=== PATIENT | male | born 1955 | race Caucasian/White ===

== ENCOUNTER 2016-06-15 05:57 | Inpatient (IN) | payer BC ==
[2016-05-21 11:07] VITALS: BMI 27.0
--- NOTE | 2016-05-21 11:41 | PAT Medication Instructions ---
Service Date May 21, 2016. Current Home Medication List Lisinopril (Prinivil), Unknown Dose PO QAM Medication Instructions For Your Scheduled Surgery - Hold the following medications the morning of surgery: Lisinopril (Prinivil), Unknown Dose PO QAM If you have any questions please call us at [phone] or [phone] ( Billie) or [phone]
--- NOTE | 2016-05-21 11:48 | HISTORY & PHYSICAL EXAMINATION ---
DATE OF ADMISSION: 06/15/2016 ATTENDING PHYSICIAN: Dr. Yamil Hernández. CHIEF COMPLAINT: Left knee pain x6 months. HISTORY OF PRESENT ILLNESS: The patient is a pleasant 61-year-old retired male who has been treated for left knee pain with Dr. Hernández. He denies any significant injury or swelling to his left knee. He states that he has pain on a daily basis is aggravated with walking. His pain is located on the anterior aspect and medial aspect of his left knee. His pain is increased with activity and weightbearing. He has decreased activities of daily living due to pain in his left knee. He has pain with range of motion and some limited range of motion or stiffness due to the pain. Aggravating activities include walking, going up and down steps. He occasionally has some pain at rest. Prior treatments include nonsteroidal anti-inflammatories and over the counter knee brace. He has had corticosteroid injections with no significant relief. He has also had previous viscosupplementation with no long lasting relief and this was done in February of 2016. He then again saw Dr. Hernández in March. He developed some locking of his knee especially after getting up from a seated position. Due to his knee pain causing trouble on a daily basis, he has elected to proceed with a left total knee replacement. PAST MEDICAL HISTORY: High blood pressure CURRENT MEDICATIONS: He takes lisinopril once per day, he is unclear of the dose. ALLERGIES: He has no known drug allergies. PAST SURGICAL HISTORY: He has had no previous past surgeries or hospitalizations in his life. SOCIAL HISTORY: Denies any tobacco, alcohol or drug use. He is retired and lives with his . Does not use any assistive device to assist with ambulation on a normal basis. FAMILY HISTORY: Noncontributory. REVIEW OF SYSTEMS: He denies any headaches, migraines, seizures or syncopal episodes. Denies any hearing loss or blurry vision. Denies any blood clots, phlebitis, embolisms or history of blood transfusions in the past. He is anxious about the surgery as he has had no previous surgeries or hospitalizations in his life. He denies any chest pain, shortness of breath, or difficulty breathing. Denies any palpitations. He occasionally gets some reflux or heartburn with certain things that he eats, he takes Tums to relieve this, nothing on a routine or a daily basis. He denies any recent fevers, chills, nausea or vomiting. He has had a recent cough, although it seems improved today. He denies any abdominal pain, diarrhea or constipation. Denies any urinary symptoms. Denies any significant changes with weight loss or weight gain. Denies any issues with anesthesia that he knows of. He has not had previous surgeries in the past. PHYSICAL EXAMINATION: GENERAL: He is alert and oriented x3. He is in no acute distress. He is a well-dressed, well-nourished male, normal mood and affect. Height is 5 feet 9 inches. Weight is 185 pounds. HEENT: Head is atraumatic, normocephalic. Eyes: Extraocular movements intact. Sclerae are normal. Pupils are equal, round and reactive to light. Ears: TMs are clear. Hearing is grossly, normal light reflex. Nose: Nares are patent. Throat: Oropharynx is clear. Mucous membranes are moist. Good dentition. Uvula midline. NECK: Supple, no lymphadenopathy. Normal range of motion without discomfort. Trachea midline. LUNGS: Clear to auscultation bilaterally. No adventitious sounds. No accessory muscle use. HEART: Regular rate and rhythm, normal S1, S2. No murmurs appreciated. ABDOMEN: Soft, nontender, nondistended. Bowel sounds heard in all 4 quadrants. EXTREMITIES: Examination of his bilateral lower extremities shows full painless [id number] of both of his hips with normal distal neurovascular function. Motion of his right and left knee is a 0/10/120. He has 1+ dorsalis pedis and posterior tibial pulses bilaterally. Varus alignment of both knees. Strength is 5/5. He ambulates with a slight antalgic gait with no assistive device. He is able to independently straight leg raise. There is no effusion bilaterally. Some mild crepitation with range of motion. RADIOLOGY IMAGES: Radiographs show of bilateral knees AP and lateral merchant views show significant end-stage degenerative joint changes of both of his knees with medial compartment arthritis as well as some patellofemoral arthritis. There is osteophyte formation, subchondral sclerosis, and possible fabella versus loose body in both knees. ASSESSMENT: End-stage left knee degenerative joint disease. PLAN: The patient is scheduled for left total knee arthroplasty with Dr. Hernández on 06/15/2016 at the [facility]. Risks and complications of surgery were explained to the patient and include but are not limited to infection, pain, bleeding, scarring, nerve and blood vessel damage, wound problems, weakness, stiffness, incomplete relief of symptoms, hardware failure, fracture, loosening, wear or blood clots, embolisms, heart attack, stroke and . All questions were answered, informed consent was obtained. He will have preadmission testing later today in which will obtain a preoperative EKG, chest x-ray, CBC, BMP, PT, PTT and type and screen. He will also have preoperative medical clearance by his family physician, Dr. Tyrone Kaplan. He has a followup appointment scheduled on 06/08/2016 with him for that clearance. He would like to go home postoperatively with most likely outpatient physical therapy he is willing to consider going home with in home health, but has not decided upon at this time. We will schedule outpatient physical therapy for the time being until this decision is made. He will follow up with Dr. Hernández in 10-15 days postoperatively for suture removal. He knows to call with any worsening problems or questions or any concerns, prior to surgery. We will use Coumadin for DVT prophylaxis with an INR goal of 2.0-3.0. We may potentially will use Lovenox as a bridging agent if necessary. He will have postoperative medical management as necessary by the hospitalist service. He was instructed to take his lisinopril the morning of surgery with a sip of water. [place]
--- NOTE | 2016-05-21 12:27 | DIAGNOSTIC IMAGING REPORT ---
CHEST PREADMISSION(PA/LAT) CLINICAL HISTORY: PAT preoperative evaluation COMPARISON STUDY: No previous studies for comparison. FINDINGS: The bones soft tissues and hemidiaphragms are normal. The cardiomediastinal silhouette is normal. The lungs are clear. The pulmonary vasculature is normal. IMPRESSION: Negative chest. Electronically signed by: Mike Carpenter M.D. 05/21/2016 12:26 PM
[2016-05-21 12:40] LABS: BASO % 0.2 %; BASO ABS # 0.02 K/uL (0-0.2); COMPLETE YES; EOS % 1.5 %; HEMATOCRIT 44.6 % (42-52); IG% 0.8 %; LYMPH % 15.1 %; LYMPH ABS # 1.51 K/uL (1.2-3.4); MEAN CORPUSCULAR HEMOGLOBIN 32.3 pg (25-34); MEAN CORPUSCULAR HGB CONC 36.3 g/dl (32-36); MEAN PLATELET VOLUME 9.5 fL (7.4-10.4); MONO % 7.5 %; NEUT % 74.9 %; PLATELET COUNT 254 K/uL (130-400); RED BLOOD COUNT 5.01 M/uL (4.7-6.1); WHITE BLOOD COUNT 10.03 K/uL (4.8-10.8)
[2016-05-21 12:57] LABS: INR 0.9 (0.9-1.1); PARTIAL THROMBOPLASTIN RATIO 1.2
[2016-05-21 13:19] LABS: BUN/CREATININE RATIO 26.4 (10-20); CREATININE 0.87 mg/dl (0.60-1.40); POTASSIUM 4.4 mmol/L (3.5-5.1)
[2016-05-21 13:32] LABS: CALCIUM 9.6 mg/dl (8.5-10.1)
[2016-06-15] VITALS (8 sets, daily range): BP systolic 117–158; BP diastolic 72–87; PULSE 76–98; TEMP 36.5–36.9; O2SAT 92–96; Ht 175.3 cm; Wt 84.4 kg
[~2016-06-15] VITALS: Ht 175.3 cm; Wt 84.4 kg
[~2016-06-15 05:57] MED LIST: LISI-729 PO
[2016-06-15] MEDS ORDERED: LACTATED RINGER'S 1000ML IV SCH (06:00)
[2016-06-15] MEDS ORDERED: TRAMADOL HCL 50 MG TAB PO SCH (06:00)
[2016-06-15] MEDS ORDERED: METOCLOPRAMIDE HCL 10 MG TAB PO SCH (06:00)
[2016-06-15] MEDS ORDERED: CLONIDINE HCL 0.1 MG/24 HR TRANSDERM SYS TD SCH (06:00)
[2016-06-15] MEDS ORDERED: GABAPENTIN 300 MG CAP PO SCH (06:00)
[2016-06-15] MEDS ORDERED: CeleBREX 200 MG CAP PO SCH (06:00)
[2016-06-15] MEDS ORDERED: LACTATED RINGER'S 500 ML IV SCH (06:00)
[2016-06-15] MEDS ORDERED: DEXAMETHASONE 4 MG TAB PO SCH (06:00)
[2016-06-15] MEDS ORDERED: ACETAMINOPHEN 500 MG TAB PO SCH (06:00)
[2016-06-15] MEDS ORDERED: BUPIVACAINE LIPOSOME 266 MG, BUPIVACAINE/EPINEPHRINE INJ 50 ML, SODIUM CHLORIDE 0.9% PF... INFIL SCH ×3 (06:00)
[2016-06-15] MEDS ORDERED: OXYCODONE HCL 10 MG TABCR (OXYCONTIN) PO SCH (06:00)
[2016-06-15] MEDS ORDERED: BUPIVACAINE 0.25% 30 ML VIAL ONE (06:39)
[2016-06-15] MEDS ORDERED: BUPIVACAINE 0.5 % 5 MG/1 ML PF 10ML VIAL ONE (06:39)
--- NOTE | 2016-06-15 06:48 | History & Physical Bridge Note ---
H&P Re-Evaluation Bridge Note: I have examined the patient, reviewed the History & Physical and in the interval since the performance of the History & Physical I have noted the following changes of clinical significance: No changes noted
[2016-06-15] MEDS ORDERED: MIDAZOLAM HCL 1 MG/ML 2ML VIAL ONE ×2 (07:32→09:10)
[2016-06-15] MEDS ORDERED: PROPOFOL IV EMULSION 10 MG/ML 20 ML VIAL IV ONE ×2 (07:32→10:30)
[2016-06-15] MEDS ORDERED: LIDOCAINE HCL 2% 2 ML VIAL (20MG/ML) ONE (07:32)
[2016-06-15] MEDS ORDERED: FENTANYL CITRATE INJ 50 MCG/1 ML 2 ML VIAL ONE (07:33)
[2016-06-15] MEDS ORDERED: LISI-461 PO (07:52)
[2016-06-15] MEDS: TRANEXAMIC ACID INJ 1,000 MG in SODIUM CHLORIDE 0.9% 100ML 100 ML IV SCH ×2 (08:40→09:12)
[2016-06-15] MEDS ORDERED: BUPIVACAINE LIPOSOME 1/3% 266 MG/20 ML VIAL INFIL ONE (08:41)
[2016-06-15] MEDS: CEFAZOLIN 2000 MG/60 ML D5W 60 ML IV SCH ×3 (09:12→14:15)
[2016-06-15] MEDS ORDERED: BACITRACIN 50000 UNIT VIAL IR ONE (11:30)
[2016-06-15] MEDS ORDERED: MAGNESIUM HYDROXIDE SUSP 30 ML UDC PO PRN (12:30)
[2016-06-15] MEDS ORDERED: KETOROLAC TROMETHAMINE 30 MG/ML VIAL IV. PRN (12:30)
[2016-06-15] MEDS ORDERED: ONDANSETRON INJ 2 MG/ML 2 ML VIAL IV PRN (12:30)
[2016-06-15] MEDS ORDERED: MoRPHine SULFATE 2 MG/ML CARP IV PRN (12:30)
[2016-06-15] MEDS ORDERED: ALUMINUM/MAGNESIUM/SIMETH (MAALOX MAX) 30 ML UDC PO PRN (12:30)
--- NOTE | 2016-06-15 12:45 | DIAGNOSTIC IMAGING REPORT ---
LEFT KNEE 2 VIEWS History: Left total knee arthroplasty. Degenerative arthritis. Postop. FINDINGS: The patient is status post a left total knee arthroplasty. The hardware is intact. No fracture or dislocation. Skin elli are in place. IMPRESSION: Left total knee arthroplasty. No evidence for hardware complication. Electronically signed by: Omar Olivarez M.D. 06/15/2016 12:43 PM Dictated Date/Time: 06/15/2016 12:41 PM
--- NOTE | 2016-06-15 13:27 | OPERATIVE REPORT ---
DATE OF OPERATION: 06/15/2016 PREOPERATIVE DIAGNOSIS: Left knee osteoarthritis. POSTOPERATIVE DIAGNOSIS: Same. PROCEDURE: Left cemented total knee arthroplasty. SURGEON: Dr. Hernández. TELEPHONE ENGINEER: Jack Calvert MD, fellow. No PA available. ANESTHESIA: Spinal with sedation. INDICATIONS FOR PROCEDURE: The patient is a 61-year-old gentleman with longstanding history of severe bilateral knee arthritis which has been refractory to nonsurgical methods of management. He wishes to proceed with operative intervention. He has had other treatments including injections, medications and braces without relief. PROCEDURE IN DETAIL: Informed consent was obtained. The patient identified as Coleman hCristopher. He identified the operative site as the left knee. I marked it with my initials. A preop surgical timeout was performed. A preop dose of IV antibiotics was given. He was taken to the operating room, positioned supine on the operating room table. Spinal anesthetic and sedation were given. A tourniquet was applied to the left thigh. No bump was placed under the left hip, a padded bump was placed under the calf. The left leg was prepped and draped in usual sterile fashion from the tourniquet to the toes. The exam showed varus alignment, tight. Range 0/10/115. 1+ LCL laxity in mid position, otherwise stable. The deformity was not correctable. There was no significant effusion. The patient received a preop dose of tranexamic acid and will get another dose in recovery. DVT prophylaxis intraoperatively with foot pumps, postoperatively with early mobility, mechanical devices and Coumadin bridging with Lovenox if necessary. The limb was exsanguinated with the Esmarch, tourniquet inflated to 225 mmHg. A midline incision was made approximately 20 cm in length. A medial parapatellar arthrotomy was performed. Soft tissue in the retropatellar fat pad was released. Soft tissue on the anterior aspect of the distal femur was released. The synovial reflection in the lateral gutter was released. An extensile medial release was performed. There was a fragmented medial meniscus tear which was excised. There were grade 3 changes of the patella. The lateral compartment was normal. The medial side showed grade 4 changes diffusely with wear of the bone into the tibia. The cruciate ligaments were excised. The lateral side of the knee was tight and difficult to expose. He had a fairly proximal attachment of the patellar tendon which made accessing the lateral side of the tibia more difficult. The tibia was subluxated. A pilot plant supervisor hole was drilled just anterior to the lateral tibial spine and an intramedullary jean claude was inserted. The jean claude was a little bit difficult to get distally but I think that this was due to a narrow canal. The tibial cutting block 0 degree slope was aligned to the tibial tubercle and pinned into place to resect 10 off the high side, corresponding to a skim cut medially. The knee was placed into full extension and the alignment jean claude was utilized, showed that there was good slope and the jean claude bisected the ankle joint and was just a trace bit to the lateral side of the second metatarsal, which I could correct by tilting the block. This was very minimal. The block was pinned into place and the cut was made. I took some extra effort to remove the posterolateral and lateral cortical bone and to ensure that this area was smoothed using a combination of saw, rongeur and rasp and measuring this with a flat surface to ensure that there was a flat cut made. Medial osteophytes were removed on the tibia and circumferentially around the remainder of the knee. The tibia was sized to a 4 after removal of medial and posteromedial osteophytes. The patellar tendon was protected at all times. Attention was turned to the femur where a pilot plant supervisor hole was drilled into the distal femur, followed by insertion of the distal femoral cutting guide. This was set to resect 12 mm thickness at a 5-degree angle valgus based upon preoperative templating. The block was pinned into place. The cuts were made. The extension gap was slightly tight 10 but symmetric. The Whitesides line was marked, followed by the transepicondylar axis. The cutting guide was affixed to the distal femur and was measured about 3-1/3. The block was pinned here, so that the extra bone will be removed from the posterior condyles. All gauges were set at 3. The external rotation drill holes were made which corresponded to the prior measurement. A size 3 anterior cutting block was applied and cuts were made, protecting the collateral ligaments. The posterior aspect of the knee was examined. There were multiple loose bodies, one in the back of the knee, several in the notch and several in the suprapatellar pouch, all removed. The back of the knee was inspected for osteophytes and posteromedial osteophytes were removed. There was nothing laterally. The box cutting guide was applied and aligned lateral, pinned in place and the cut was made, followed by application of the femoral component. Prior to this, the flexion gap was assessed to be a symmetrical 10 and the extension gap after removal of posterior osteophytes was a symmetric 10 with full extension and neutral alignment. Attention was turned to the tibia where the size 4 baseplate was aligned to the lateral cortex, pinned into place and the keel was drilled and punched. This was followed by insertion of the trial spacer which showed full extension, neutral alignment, flexion to 115-120 degrees, and 1+ laxity in mid position of the LCL, otherwise no laxity. The patella was measured to be 25 mm in thickness and a 38 oval dome patella was selected. The guide was set to preserve 16 mm of bone. The guide was affixed, the cut was made. The patellar paddle was medialized and distalized and the lug holes were drilled. The trial was applied and tracking was excellent. The canals were plugged. The bony surfaces were drilled where there was eburnated bone, medial patella and medial tibia. Copious pulsatile lavage was performed for all bony surfaces to clean them. Exparel was injected into the back of the knee, taking care to avoid the posterior and lateral neurovascular structures. Two bags of Simplex P cement were mixed and the cement was mixed and when in a doughy state, the components were cemented into place. Femur, tibia and patella held in extension until the cement had dried. At this time, the tourniquet was let down after 120 minutes of inflation. Copious pulsatile lavage was performed. During the cement hardening, the remainder of the Exparel was injected around the knee. The trialing showed good stability throughout and the final implant a size 10 was inserted for the spacer. The back of the knee was inspected for cement and the back of the knee was irrigated prior to final wound closure and final polyethylene implantation. The extensor mechanism was closed above the equator with interrupted #2 FiberWire and below the equator with running #1 Vicryl. The skin was closed in layers with 0 and 2-0 Vicryl and elli on the skin. Composite patellar thickness was 26 mm. The patella tracked well with no-hands technique. Langston assisted flexion with the extensor mechanism closed was 115-120 degrees. The knee was fully straight without any springiness and neutrally aligned. 2-0 Vicryl and elli used for the skin, followed by wet and dries and sterile dressing with a full length Elie wrap. The patient was awakened from anesthesia without difficulty, taken to recovery room in stable condition. There were no complications. The resected bone was sent for specimen. Counts were correct at the end of case. Blood loss was 50 mL. At the conclusion of the operation, I spoke to patient's family and informed them of my findings. Postoperative instructions were given. He will be anticoagulated with Coumadin or Lovenox. He will be rehabilitated according to total knee rehab protocol. He can weightbear as tolerated. I attest to the content of the Intraoperative Record and any orders documented therein. Any exceptio ns are noted below.
[2016-06-15] MEDS ORDERED: MoRPHine SULFATE 4 MG/ML 1 ML CARP\\VIAL IV PRN ×2 (14:00)
--- NOTE | 2016-06-15 14:05 | Anesthesiology Progress Note ---
Anesthesia Post Op Note Date & Time Jun 15, 2016 at 14:05 Vital Signs Pain Intensity: 0 Vital Signs Past 12 Hours Date Time Temp Pulse Resp B/P Pulse Ox O2 Delivery O2 Flow Rate FiO2 06/15/16 13:15 74 16 122/78 94 Nasal Cannula 2 06/15/16 13:00 71 13 127/76 95 Nasal Cannula 2 06/15/16 12:55 72 17 127/77 96 Nasal Cannula 2 06/15/16 12:45 36.9 71 12 120/81 96 Nasal Cannula 2 06/15/16 12:35 72 14 124/80 97 Nasal Cannula 2 06/15/16 12:25 76 16 124/80 97 Nasal Cannula 2 06/15/16 12:15 73 16 156/91 96 Nasal Cannula 2 06/15/16 12:07 36.3 84 16 140/86 94 Room Air 06/15/16 07:02 36.8 92 18 150/87 96 Room Air Notes Mental Status: alert / awake / arousable, participated in evaluation Pt Amnestic to Procedure: Yes Nausea / Vomiting: adequately controlled Pain: adequately controlled Airway Patency, RR, SpO2: stable & adequate BP & HR: stable & adequate Hydration State: stable & adequate Neuraxial Anesthesia: was administered, sensory block is resolving Anesthetic Complications: no major complications apparent
[2016-06-15] MEDS: ACETAMINOPHEN 500 MG TAB PO SCH ×2 (14:29→21:50)
[2016-06-15] MEDS: D5W AND 1/2NSS + 20MEQ KCL 1,000 ML IV SCH (14:29)
[2016-06-15] MEDS ORDERED: WARFARIN SOD 5 MG TAB PO SCH (16:00)
--- NOTE | 2016-06-15 16:51 | [facility] Operative Report ---
Operative Report Operative Date Jun 15, 2016. Pre-Operative Diagnosis End stage left knee degenerative joint disease Post-Operative Diagnosis End stage left knee degenerative joint disease Procedure(s) Performed Left total knee arthroplasty Cemented Surgeon Dr Yamil Hernández Consulting Software Engineer Surgeon(s) Dr Jack Olmedo Estimated Blood Loss 25 ML Findings Left knee DJD Specimens A. Left knee bone and tissue Complication(s) None Disposition PCU I attest to the content of the Intraoperative Record and any orders documented therein. Any exceptions are noted below.
--- NOTE | 2016-06-15 16:56 | PROGRESS NOTE ---
DATE: 06/15/2016 DATE: 06/15/2016. Postop check. X-rays show no complication and good alignment. He is afebrile. His vital signs are stable. 1+ dorsalis pedis pulse. He has some tingling in his toes, likely secondary to block. The dressing is clean and dry. He has 5/5 ankle and toe plantar flexion and dorsiflexion. Surgical findings are discussed. He does not have any nausea. Pain is well controlled. We discussed some dos and don'ts and he will work with the nurse for sitting up and possibly walking. Use a knee immobilizer. Will continue to monitor.
[2016-06-15] MEDS: FERROUS GLUCONATE 324 MG TAB PO SCH (19:20)
[2016-06-15] MEDS: CEFAZOLIN IV 2,000 MG in DEXTROSE 5% 50ML 50 ML IV SCH (19:29)
[2016-06-15] MEDS: SENNA 8.6 MG TAB PO SCH (21:10)
[2016-06-15] MEDS: ASPIRIN 81 MG ECTAB PO SCH (21:10)
[2016-06-15] MEDS: DOCUSATE SODIUM 100 MG CAP PO SCH (21:10)
[2016-06-15] MEDS: OXYCODONE HCL IR 5 MG TAB (IMMEDIATE RELEASE) PO PRN (21:14)
[2016-06-16] MEDS: D5W AND 1/2NSS + 20MEQ KCL 1,000 ML IV SCH ×2 (00:14→08:35)
[2016-06-16] MEDS: CEFAZOLIN IV 2,000 MG in DEXTROSE 5% 50ML 50 ML IV SCH (02:24)
[2016-06-16 04:03] VITALS: BP 144/88; PULSE 80; TEMP 36.5; O2SAT 94
[2016-06-16] MEDS: ACETAMINOPHEN 500 MG TAB PO SCH ×3 (05:35→22:08)
[2016-06-16 06:27] LABS: HEMATOCRIT 36.3 % (42-52); MEAN CORPUSCULAR HEMOGLOBIN 32.6 pg (25-34); MEAN CORPUSCULAR HGB CONC 35.8 g/dl (32-36); MEAN PLATELET VOLUME 9.6 fL (7.4-10.4); PLATELET COUNT 162 K/uL (130-400); RED BLOOD COUNT 3.99 M/uL (4.7-6.1); WHITE BLOOD COUNT 13.89 K/uL (4.8-10.8)
[2016-06-16 06:56] LABS: BUN/CREATININE RATIO 19.5 (10-20); CALCIUM 8.3 mg/dl (8.5-10.1); CREATININE 0.86 mg/dl (0.60-1.40); POTASSIUM 3.7 mmol/L (3.5-5.1)
[2016-06-16 07:14] VITALS: BP 154/85; PULSE 72; TEMP 36.4; O2SAT 97
[2016-06-16] MEDS ORDERED: DEXAMETHASONE INJ 10 MG in SYRINGE 0 ML IV ONE (07:30)
--- NOTE | 2016-06-16 08:52 | Progress Note ---
Orthopedic SOAP Note Subjective Date of Service: Jun 16, 2016. Post OP Day: 1 Reports: feeling well, pain controlled w PO medications, Denies: SOB, calf pain , chest pain, complaints, light headedness, nausea / vomiting, using VOCATIONAL TEACHER Objective calves soft nontender, N/V intact, capillary refill less than 2 sec., dressing C /D/I, A&O x3, toes mobile knee immobilizer in place resting comfortably in bed with at bedside Date Time Temp Pulse Resp B/P Pulse Ox O2 Delivery O2 Flow Rate FiO2 06/16/16 07:56 Room Air 06/16/16 07:14 36.4 72 16 154/85 97 Room Air 06/16/16 04:03 36.5 80 16 144/88 94 Room Air 06/16/16 00:10 Nasal Cannula 2.0 06/15/16 23:45 36.9 79 16 117/72 93 Room Air 06/15/16 19:45 36.8 98 17 158/84 92 Nasal Cannula 2.0 06/15/16 16:40 36.8 95 18 147/87 94 Nasal Cannula 2.0 06/15/16 15:40 36.8 95 16 147/80 95 Nasal Cannula 2.0 06/15/16 14:31 36.5 98 16 137/82 95 Nasal Cannula 2.0 06/15/16 14:24 83 144/79 06/15/16 13:35 Nasal Cannula 2.0 06/15/16 13:35 36.7 76 18 126/77 96 Nasal Cannula 2.0 06/15/16 13:35 96 Nasal Cannula 2.0 06/15/16 13:15 74 16 122/78 94 Nasal Cannula 2 06/15/16 13:00 71 13 127/76 95 Nasal Cannula 2 06/15/16 12:55 72 17 127/77 96 Nasal Cannula 2 06/15/16 12:45 36.9 71 12 120/81 96 Nasal Cannula 2 06/15/16 12:35 72 14 124/80 97 Nasal Cannula 2 06/15/16 12:25 76 16 124/80 97 Nasal Cannula 2 06/15/16 12:15 73 16 156/91 96 Nasal Cannula 2 06/15/16 12:07 36.3 84 16 140/86 94 Room Air Laboratory Results 24 Hours: Test 06/16/16 05:47 06/16/16 08:31 Hematocrit 36.3 % Hemoglobin 13.0 g/dL Assessment post op day 1 s/p Left TKA Plan continue post op care PT/OT DVT prophylaxis with Coumadin x 6 weeks, target INR 2.0-3.0 pain control with prescribed medications will attend outpatient PT and labs order for walker placed ice/elevate resume diet WBAT left L.E. with walker assist patient requesting DC home tomorrow
[2016-06-16] MEDS ORDERED: OXYC-57 PO (08:54)
[2016-06-16] MEDS ORDERED: WARF2TAB PO (08:54)
--- NOTE | 2016-06-16 08:55 | Discharge Instructions ---
Discharge Instructions Admission Reason for Admission: Left Knee Degenerative Joint Disease Discharge Discharge Diagnosis / Problem: s/p Left total knee arthroplasty Discharge Goals Goal(s): Decrease discomfort, Improve function, Increase independence Activity Recommendations Activity Limitations: as noted below Lifting Limitations: none Exercise/Sports Limitations: none May Resume Sexual Activity: when tolerated Shower/Bathe: keep incision dry Driving or Machine Use: once cleared by Dr. Hernández Weightbearing Status: Left weightbearing (as tolerated) . Instructions / Follow-Up Instructions / Follow-Up New Medicine: * You will likely be taking one or more of these medications: 1. Coumadin (Warfarin) - You will be on Coumadin for 6 weeks after surgery to prevent blood clots. The PT/INR blood test which measures the "thinness" of your blood will need to be done every Tuesday and while on Coumadin. My office will contact you after every test to tell you how much Coumadin to take. If you do not hear from my office within 24 hours of the test, please call. Do not take anti-inflammatory pills (Advil or Aleve) while on Coumadin. Aspirin, 81 mg is OK. 2. Oxycontin - Take one every 12 hours. 3. Percocet - Take, as directed, when you need it, every four to six hours to control your pain. 4. Colace & Senokot - Take to prevent constipation which can be caused by narcotics. These can be bought [id number] at the pharmacy * The most common side effects of pain medicine and iron are nausea and constipation. If nausea or constipation is too much of a problem or if you have any questions about your new medicines or doses, call [facility] at . We will try to help you manage these issues. VERY IMPORTANT TO READ AND REVIEW" Blood Clots and Blood Thinning Medicine: * You are given Coumadin during the immediate post-operative period to lessen the risk of blood clots forming in your legs and/or lungs. Coumadin is usually given for six weeks after surgery. * The prescription is for 2 mg tablets. At discharge, you should understand your dose and take it all at the same time every day, preferably after dinner. * You need to get your blood checked every Tuesday and for six weeks or as directed. * If your dose needs to change, we will call you. Do not take your medication on the day of the blood test until we call you. Physical Therapy: * Do your physical therapy at home. These are the exercises you learned while in the hospital (quad sets, leg raises, calf pumps, gluteal squeezes, knee bending, and heel props.) You should do these exercises 3-4 times per day. * You will either go to inpatient rehab ([facility]), home with Home Therapy and nursing or home with outpatient rehab. You should do rehab with the therapist 2-3 times per week. You should do therapy on your own daily. * You may bear full weight on your leg with crutches or walker unless otherwise advised. Home Exercise: * You were shown a series of exercises (heel props, heel slides, etc.) in the hospital. Do these exercises three to four times each day including the exercises you were shown in physical therapy. Walking: * You may be up for short periods of time. Standing and walking for 1-2 hours at a time is usually okay. You should not stand or walk for excessive periods of time as this may cause increased pain and swelling. SELF CARE INSTRUCTIONS AFTER TOTAL KNEE REPLACEMENT A. You may need to continue a physical therapy program after discharge from the hospital. There are several options available to you. Your doctor will assist you in selecting the best one for you. 1. An out-patient facility 2 to 3 times a week for therapy or home therapy. 2. Continue working on all exercises taught to you in the hospital. Your goals should be to increase bending of your knee to 90 degrees and beyond and to fully straighten your knee. B. Your therapist will notify you when you are able to progress from a walker to a cane. C. Wear TEDS as much as possible.~ They may be removed at night for laundering. D. Do not place a pillow behind your knee when resting. A pillow at your ankle is okay. E. Ice your knee 15-20 minutes every 2-3 hours and elevate it above the level of your heart. F. You may shower on the fourth day after surgery using regular soap and water. Do not submerge until the wound is completely healed (approximately 2 weeks ). Until the fourth day after surgery, cover the incision/bandage with a bag or plastic wrap. G. Anyone who is touching your surgical incision area should wash their hands and wear gloves. H. Keep your incision covered with gauze pads under the NICK hose until it is dry. VERY IMPORTANT TO READ AND REVIEW A. YOU WILL BE GIVEN AN ORDER AT DISCHARGE FOR PT/INR (BLOOD WORK). PLEASE HAVE THIS DONE INSTRUCTED. PLEASE CALL OUR OFFICE AFTER YOUR BLOODWORK IS COMPLETE SO WE CAN TRACK YOUR RESULTS. IF YOU ARE GOING TO OUTPATIENT PHYSICAL THERAPY, YOU WILL NEED TO GO TO OUTPATIENT TESTING TO HAVE IT DRAWN. B. There are a few signs you need to watch for after you are home. Call [facility] if you notice any of the followin. Increased severe knee pain. Some pain is expected especially when you exercise. 2. Increased swelling in your leg or knee; pain or swelling of the calf muscle in either lower leg. 3. Any fluid drainage from the incision. 4. Shortness of breath or chest pain. 5. Numbness and tingling in the surgical extremity C. Please call [facility] at if you have any concerns or questions about your operation or recovery. The doctor or his nurse will return your call promptly. D. Do not have any elective dental work or other elective procedures done for 6 weeks after your knee replacement. When you have any invasive procedure (dental cleaning, extraction, colonoscopy etc) performed, you will need to take antibiotics to prevent infection from developing in your artificial joint. Tell your other health care providers you have an artificial joint. My office will supply you with further information and the antibiotics. Call your doctor if: * Temperature above 101 degrees F. * Pain not relieved by pain medicine ordered. * Increased drainage or redness from incision. * Notify your doctor with any questions or concerns. Follow-up Visit: You will follow-up with Dr. Hernández 10-14 days after surgery. The office number is . Avoid all tobacco products. If you need help to stop smoking, call [place] at . This is a free call. Current Hospital Diet Patient's current hospital diet: Regular Diet Discharge Diet Recommended Diet: Regular Diet Procedures Procedures Performed: Left total knee arthroplasty Cemented Pending Studies Studies pending at discharge: no Medical Emergencies . Who to Call and When: Medical Emergencies: If at any time you feel your situation is an emergency, please call 911 immediately. . Non-Emergent Contact Non-Emergency issues call your: Primary Care Provider . "Provider Documentation" section prepared by Robert Lim. VTE Core Measure Inpt VTE Proph given/why not?: Warfarin (Coumadin)[place] [facility] Monitoring Program Search Results: no issues identified
[2016-06-16] MEDS: ASPIRIN 81 MG ECTAB PO SCH ×2 (09:07→20:43)
[2016-06-16] MEDS: DOCUSATE SODIUM 100 MG CAP PO SCH ×2 (09:07→20:43)
[2016-06-16] MEDS: FERROUS GLUCONATE 324 MG TAB PO SCH ×3 (09:07→17:58)
[2016-06-16] MEDS: LISINOPRIL 10 MG TAB PO SCH (09:08)
[2016-06-16] MEDS: OXYCODONE HCL IR 5 MG TAB (IMMEDIATE RELEASE) PO PRN ×4 (09:08→20:43)
[2016-06-16] MEDS: PANTOprazole SOD 40 MG TAB PO SCH (09:08)
[2016-06-16 10:16] LABS: PROTHROMBIN TIME (PATIENT) 10.8 SECONDS (9.0-12.0)
--- NOTE | 2016-06-16 10:40 | Anesthesiology Progress Note ---
Anesthesia Post Op Note Date & Time Jun 16, 2016 at 10:37 Vital Signs Pain Intensity: 4.0 Vital Signs Past 12 Hours Date Time Temp Pulse Resp B/P Pulse Ox O2 Delivery O2 Flow Rate FiO2 06/16/16 07:56 Room Air 06/16/16 07:14 36.4 72 16 154/85 97 Room Air 06/16/16 04:03 36.5 80 16 144/88 94 Room Air 06/16/16 00:10 Nasal Cannula 2.0 06/15/16 23:45 36.9 79 16 117/72 93 Room Air Notes Mental Status: alert / awake / arousable, participated in evaluation Pt Amnestic to Procedure: Yes Nausea / Vomiting: adequately controlled Pain: adequately controlled Airway Patency, RR, SpO2: stable & adequate BP & HR: stable & adequate Hydration State: stable & adequate Anesthetic Complications: no major complications apparent
[2016-06-16 10:54] VITALS: BP 136/81; PULSE 86; TEMP 36.6; O2SAT 94
[2016-06-16] MEDS: TRAMADOL HCL 50 MG TAB PO PRN (12:48)
[2016-06-16] MEDS: ENOXAPARIN 30 MG/0.3 ML SYR SQ SCH (13:48)
[2016-06-16 14:54] VITALS: BP 146/78; PULSE 94; TEMP 36.9; O2SAT 96
[2016-06-16] MEDS ORDERED: WARFARIN SOD 5 MG TAB PO SCH (16:00)
--- NOTE | 2016-06-16 16:31 | PROGRESS NOTE ---
DATE: 06/16/2016 Mr. Christopher is resting comfortably in bed. His pain is well controlled. He has done well with PT. He is afebrile with stable vital signs. Urine output is adequate. His labs are noted. White count is likely elevated secondary to steroids and stress. INR is 1.0. He has normal sensation in his foot with a 1+ posterior tib pulse and normal strength with toe and ankle plantar flexion and dorsiflexion. His dressing is clean and dry. We discussed rehabilitation, bathing, appropriate activity levels. I will let him ambulate without the brace tomorrow under the guidance of the therapist. Lovenox has been started and may need to be continued.
[2016-06-16 19:11] VITALS: BP 143/80; PULSE 93; TEMP 36.7; O2SAT 96
[2016-06-16] MEDS: SENNA 8.6 MG TAB PO SCH (22:08)
[2016-06-16 23:38] VITALS: BP 117/71; PULSE 89; TEMP 36.7; O2SAT 92
[2016-06-17] MEDS: TRAMADOL HCL 50 MG TAB PO PRN ×2 (00:03→10:10)
[2016-06-17] MEDS: ENOXAPARIN 30 MG/0.3 ML SYR SQ SCH ×2 (00:03→12:17)
[2016-06-17 06:05] VITALS: BP 126/81; PULSE 84; TEMP 36.9; O2SAT 95
[2016-06-17] MEDS: ACETAMINOPHEN 500 MG TAB PO SCH (06:13)
[2016-06-17] MEDS: FERROUS GLUCONATE 324 MG TAB PO SCH ×2 (07:42→12:16)
[2016-06-17] MEDS: PANTOprazole SOD 40 MG TAB PO SCH (07:42)
[2016-06-17] MEDS: OXYCODONE HCL IR 5 MG TAB (IMMEDIATE RELEASE) PO PRN (07:43)
[2016-06-17] MEDS: LISINOPRIL 10 MG TAB PO SCH (07:43)
[2016-06-17 07:49] VITALS: BP 124/75; PULSE 92; TEMP 36.5; O2SAT 94
[2016-06-17] MEDS: DOCUSATE SODIUM 100 MG CAP PO SCH (07:56)
[2016-06-17] MEDS: ASPIRIN 81 MG ECTAB PO SCH (07:56)
--- NOTE | 2016-06-17 08:22 | Progress Note ---
Orthopedic SOAP Note Subjective Date of Service: Jun 17, 2016. Post OP Day: 2 Reports: feeling well, pain controlled w PO medications, Denies: SOB, calf pain , chest pain, complaints, light headedness, nausea / vomiting, using ROUGHING MILL OPERATOR Objective calves soft nontender, N/V intact, capillary refill less than 2 sec., dressing C /D/I, incision C/D/I, A&O x3, toes mobile, CMS intact Date Time Temp Pulse Resp B/P Pulse Ox O2 Delivery O2 Flow Rate FiO2 06/17/16 08:00 Room Air 06/17/16 07:49 36.5 92 16 124/75 94 Room Air 06/17/16 06:05 36.9 84 16 126/81 95 Room Air 06/17/16 00:00 Room Air 06/16/16 23:38 36.7 89 18 117/71 92 Room Air 06/16/16 19:11 36.7 93 16 143/80 96 Room Air 06/16/16 16:15 Room Air 06/16/16 14:54 36.9 94 16 146/78 96 Room Air 06/16/16 10:54 36.6 86 16 136/81 94 Room Air Laboratory Results 24 Hours: Test 06/16/16 09:29 Prothromb Time International Ratio 1.0 Prothrombin Time 10.8 SECONDS Assessment post op day 2 s/p Left TKA Plan continue post op care PT/OT DVT prophylaxis with Coumadin x 6 weeks, target INR 2.0-3.0 pain control with prescribed medications labs pending will attend outpatient PT and labs order for walker placed ice/elevate resume diet WBAT left L.E. with walker assist patient requesting DC home today
[2016-06-17] MEDS ORDERED: ENOX40IN SQ (08:29)
[2016-06-17 08:58] LABS: HEMATOCRIT 35.2 % (42-52); MEAN CORPUSCULAR HEMOGLOBIN 32.8 pg (25-34); MEAN CORPUSCULAR HGB CONC 36.1 g/dl (32-36); MEAN PLATELET VOLUME 9.5 fL (7.4-10.4); PLATELET COUNT 178 K/uL (130-400); RED BLOOD COUNT 3.87 M/uL (4.7-6.1); WHITE BLOOD COUNT 11.07 K/uL (4.8-10.8)
[2016-06-17 09:04] LABS: PROTHROMBIN TIME (PATIENT) 11.2 SECONDS (9.0-12.0)
[2016-06-17 09:22] LABS: CALCIUM 8.7 mg/dl (8.5-10.1); POTASSIUM 3.5 mmol/L (3.5-5.1)
[2016-06-17 09:54] VITALS: BP 124/75; PULSE 92; TEMP 36.5; O2SAT 94
[2016-06-17] MEDS ORDERED: WARFARIN SOD 7.5 MG TAB PO SCH (10:00)
[2016-06-17] MEDS ORDERED: ULT50X PO (14:08)
--- NOTE | 2016-06-17 14:49 | PROGRESS NOTE ---
DATE: 06/17/2016 Mr. Christopher is ready for discharge. He is afebrile. His vital signs are stable. Pain is well controlled. He has done well with PT. H\T\H is okay. His INR is subtherapeutic. Unable to do a straight leg raise. Incision is benign with scant bloody drainage. There is an effusion present, but it is not large or tense. His distal neurovascular function is intact. Plan is to discharge him home. We discussed wound care, bathing physical therapy, elevation, activity restrictions, reviewed his medications with him and he will take Lovenox 40 mg subQ daily beginning tomorrow to cover his subtherapeutic INR. He will have Coumadin 7.5 mg today. We will check his PT/INR tomorrow morning when he comes in for outpatient PT, then will check it twice weekly thereafter. He has enough Lovenox to last him for 5 days if needed. I also added some Ultram for pain, which will be sent to [facility] pharmacy electronically. Problems to watch out for are severe pain, swelling, numbness, tingling, fevers, drainage. Take a stool softener. No NSAIDs or extra Tylenol, elevation, icing. He has a slight bit of erythema in the antecubital fossa area and a little bit on the upper right thigh, nothing on the chest or back. Very slightly itchy. He does report having sensitive skin, could be some type of allergic reaction. He did have some wipes over the elbow for blood draws. Will continue to monitor.
--- NOTE | 2016-06-17 15:16 | DISCHARGE SUMMARY ---
DATE OF DISCHARGE: 06/17/2016. ADMISSION DIAGNOSIS: Left knee arthritis. DISCHARGE DIAGNOSIS: Same. PROCEDURE: Left total knee arthroplasty. BRIEF HISTORY: The patient is a 61-year-old male with end stage arthritis of his left knee refractory to nonsurgical methods of management and he has elected to proceed with operative intervention. He is otherwise healthy with just a history of hypertension. HOSPITAL COURSE: He was admitted to the hospital after an uneventful total knee arthroplasty. He did well with physical therapy. His hematocrit was stable. He was neurovascularly intact. Wound was benign. DVT prophylaxis with mechanical devices, Coumadin and Lovenox bridging. His neurovascular exam remained intact. Wound was healing well. He is discharged home. He is to follow up with me as scheduled. He has therapy scheduled for the day after discharge. He has been given instructions regarding use of his medications, Coumadin and Lovenox. Wound and bathing instructions have been discussed with the patient. He is to watch out for anything in terms of swelling, pain, fevers, numbness. He will have Ultram, Percocet for pain, Coumadin and Lovenox as well as a stool softener.
--- NOTE | 2016-06-17 15:54 | DISCHARGE SUMMARY ---
ADMISSION DIAGNOSIS: Left knee degenerative joint disease. PROCEDURE PERFORMED: Left total knee arthroplasty performed by Dr. Hernández on 06/15/2016. DISCHARGE DIAGNOSIS: Status post left total knee arthroplasty. PERTINENT DISCHARGE MEDICATIONS: 1. Coumadin 2 mg tabs taken daily as instructed x6 weeks with target INR of 2.0-3.0. 2. Percocet 5/325 mg tabs 1-2 every 4-6 hours as needed for pain. 3. Lovenox 40 mg subQ injections daily x5 days upon discharge. HOSPITAL COURSE: Coleman is a 61-year-old male patient of Dr. Hernández's from [facility] that underwent a left total knee arthroplasty on 06/15/2016. His activity level has progressed to the point where he was able to be discharged home on 06/17/2016. Overall, tolerated well the procedure and rehabilitation therapies and labs accordingly. VITAL SIGNS: Upon discharge revealed temperature of 36.5, pulse of 92, respiratory rate 16, blood pressure of 124/75, pulse ox is 94% on room air. LABORATORY VALUES: On 06/17/2016 revealed white count of 11, hemoglobin of 12, hematocrit of 35, platelet count of 178. PT INR is 11.2 and 1.0. Chemistry reveals sodium of 142, potassium 3.5, chloride of 105, carbon dioxide 24, BUN of 17, creatinine 1.0, random glucose is 150. DISCHARGE INSTRUCTIONS: 1. Discharge Coleman home with outpatient services on 06/17/2016. 2. Coumadin x6 weeks with target INR of 2.0-3.0. 3. Biweekly PT/INR lab draws through outpatient labs. Order placed accordingly. 4. Weightbear as tolerated left lower extremity with a walker. Order for a walker and walker has been provided. 5. Pain control with prescribed medications Percocet 5/325 mg tabs as needed for pain. 6. Continue to ice and elevate left lower extremity accordingly. 7. Physical therapy and occupational therapy 2-3 times weekly x4 to 6 weeks. 8. Resume previous diet. 9. Follow up with Dr. Hernández 2 weeks after surgery for staple removal. 10. Continue Lovenox until INR therapeutic. 11. Any other questions or concerns, notify [facility] at [phone].
[2016-08-10] MEDS ORDERED: IBUP-1050 PO (11:03)
[2016-08-12] MEDS ORDERED: KETO10TA PO (07:39)
[2016-08-12] MEDS ORDERED: ASPI325T4 PO (07:39)
== END 2016-06-17 15:08 | disposition home or self-care (01) | DRG 470 ==
LOC: ENRESERVTM → ENRESERVDT → C.ACU 05:57 → C.3E 12:25
PROVIDERS: ADMIT Physical Medicine & Rehabilitation Sports Medicine; ATTEND Physical Medicine & Rehabilitation Sports Medicine
PROC: 0SRD0J9 Replacement of Left Knee Joint with Synthetic Substitute, Cemented, Open Approach (ICD-10-PCS; principal; 2016-06-15 08:00)
DX: M17.12 Unilateral primary osteoarthritis, left knee (principal); I10 Essential (primary) hypertension

== ENCOUNTER → 2016-06-18 | Outpatient (CLI) | payer BC ==
[~2016-06-18] MED LIST changes: +ASPI325T4 PO; +ENOX40IN SQ; +IBUP-1050 PO; +KETO10TA PO; +LISI-461 PO; -LISI-729 PO; +OXYC-57 PO; +ULT50X PO; +WARF2TAB PO
[2016-06-18 09:35] LABS: HEMATOCRIT 35.3 % (42-52); MEAN CELL VOLUME 89.1 fL (80-100); MEAN CORPUSCULAR HEMOGLOBIN 32.6 pg (25-34); MEAN CORPUSCULAR HGB CONC 36.5 g/dl (32-36); MEAN PLATELET VOLUME 9.8 fL (7.4-10.4); PLATELET COUNT 198 K/uL (130-400); RED BLOOD COUNT 3.96 M/uL (4.7-6.1); WHITE BLOOD COUNT 10.79 K/uL (4.8-10.8)
== END | disposition home or self-care (01) ==
LOC: C.LAB1850 08:29
PROVIDERS: ATTEND Physical Medicine & Rehabilitation Sports Medicine
DX: Z51.81 Encounter for therapeutic drug level monitoring (principal); Z79.01 Long term (current) use of anticoagulants; Z96.652 Presence of left artificial knee joint

== ENCOUNTER → 2016-08-12 | Day surgery (SDC) | payer BC ==
[2016-08-10 11:00] VITALS: Ht 175.3 cm; Wt 84.5 kg
[~2016-08-12] VITALS: Ht 175.3 cm; Wt 84.5 kg
[~2016-08-12] MED LIST changes: +ATROPINE SULFATE 0.1 MG/ML 5ML SYR IV PRN; +BUPIVACAINE 0.5 % 5 MG/1 ML PF 10ML VIAL ONE; -ENOX40IN SQ; +EpHEDrine SULFATE INJ 50 MG/ML AMP IV PRN; +FENTANYL CITRATE INJ 50 MCG/1 ML 2 ML VIAL IV PRN; +FENTANYL CITRATE INJ 50 MCG/1 ML 2 ML VIAL ONE; +HYDROCODONE/ACETAMOPHEN 5/325MG TAB ONE; +HYDROCODONE/ACETAMOPHEN 5/325MG TAB PO PRN; +KETOROLAC TROMETHAMINE 30 MG/ML VIAL ONE; +LABETALOL HCL IV 5 MG/ML 20ML ONE; +LIDOCAINE HCL 2% 2 ML VIAL (20MG/ML) ONE; +METHYLPREDNISOLONE ACETATE 80 MG/ML VIAL ONE; +MIDAZOLAM HCL 1 MG/ML 2ML VIAL ONE; +MoRPHine SULFATE 2 MG/ML CARP IV PRN; +ONDANSETRON INJ 2 MG/ML 2 ML VIAL IV PRN; +ONDANSETRON INJ 2 MG/ML 2 ML VIAL ONE; -OXYC-57 PO; +PROPOFOL IV EMULSION 10 MG/ML 20 ML VIAL IV ONE; +SODIUM CHLORIDE 0.9% 1000ML 1,000 ML IV SCH; +SUCCINYLCHOLINE 100MG/5ML SYR IV ONE; -ULT50X PO; -WARF2TAB PO
[2016-08-12] MEDS: LACTATED RINGER'S 1000ML 1,000 ML IV SCH ×2 (06:47→08:03)
--- NOTE | 2016-08-12 07:40 | [facility] Post Operative Brief Note ---
Immediate Operative Summary Operative Date Aug 12, 2016. Pre-Operative Diagnosis Left knee stiffness, status post total knee arthroplasty Post-Operative Diagnosis Same as preop Procedure(s) Performed Left Knee Manipulation Under Anesthesia Surgeon Dr. Hernández Operations General Agent Surgeon(s) donato Aguilera MS# Estimated Blood Loss 0 mL Findings stiff tka Specimens None Anesthesia LMA Complication(s) None Disposition Recovery Room / PACU
--- NOTE | 2016-08-12 07:43 | Discharge Instructions-SurgCtr ---
Discharge Instructions Date of Service Aug 12, 2016. Visit Reason for Visit: Left Knee Stiffness, S/P Total Knee Arthroplasty Discharge Discharge Diagnosis / Problem: Left knee manipulation under anesthesia Discharge Goals Goal(s): Decrease discomfort, Improve function, Increase independence Activity Recommendations Activity Limitations: per Instructions/Follow-up section DIET: * Resume previous diet. MEDICATIONS: * Please take your prescriptions as instructed at your pre-op appointment and/ or see medication discharge instructions listed above. * If concerns develop, call your physician's office at . SPECIAL CARE INSTRUCTIONS: * Weight bearing as tolerated with crutches if needed * Ice/Elevate as instructed. * Keep dressing clean, dry, intact. * Your surgical extremity may be discolored due to prepping agents used on the skin. A bluish-green tint is a normal variant and should not cause alarm. Call your doctor at [phone] if: * Temperature above 101 degrees * Pain not relieved by pain medicine ordered * There is increased drainage or redness from any incision * You have any unanswered questions, problems or concerns. FOLLOW UP VISIT: * Follow up with Physical Therapy on 08/13/16. * Follow up with Dr. Hernández 2 weeks after the intervention. * If not already scheduled, please call the office at to schedule a follow-up appointment. Anesthesia . Post Anesthesia Instructions: If you have had General Anesthesia or IV Sedation: * Do not drive today. * Resume driving when surgeon permits. * Do not make important decisions or sign legal documents today. * Call surgeon for: 1. Temperature elevations greater than 101 degrees F. 2. Uncontrollable pain. 3. Excessive bleeding. 4. Persistent nausea and vomiting. 5. Medication intolerance (nausea, vomiting or rash). * For nausea and vomiting use only clear liquids such as: tea, soda, bouillon until nausea subsides, then gradually increase diet as tolerated. * If you have any concerns or questions, call your surgeon's office. If physician is unavailable and it is an emergency, call [phone] or go to the nearest emergency room. . Diet Recommendations Home Diet: no limitations, resume previous diet Procedures Procedures Performed: Left Knee Manipulation Under Anesthesia Pending Studies Studies pending at discharge: no Medical Emergencies . Who to Call and When: Medical Emergencies: If at any time you feel your situation is an emergency, please call 911 immediately. . Non-Emergent Contact Non-Emergency issues call your: Surgeon Call Non-Emergent contact if: temperature is above 101, your pain is not controlled, wound has increased drainage . . "Provider Documentation" section prepared by Jack Olmedo.
--- NOTE | 2016-08-12 07:47 | [facility] Post Operative Brief Note ---
Immediate Operative Summary Operative Date Aug 12, 2016. Pre-Operative Diagnosis Left knee stiffness, status post total knee arthroplasty Post-Operative Diagnosis Same as preop Procedure(s) Performed Left Knee Manipulation Under Anesthesia Surgeon Dr. Hernández Home Appraiser Surgeon(s) donato Aguilera MS# Estimated Blood Loss 0 mL Specimens None Complication(s) None Disposition PCU
--- NOTE | 2016-08-12 09:13 | Anesthesia Progress Nt - [facility] ---
Anesthesia Post Op Note Date & Time Aug 12, 2016 at 09:13 Vital Signs Pain Intensity: 6 Vital Signs Past 12 Hours Date Time Temp Pulse Resp B/P Pulse Ox O2 Delivery O2 Flow Rate FiO2 08/12/16 08:34 36.7 84 16 160/103 97 Room Air 08/12/16 08:24 86 14 97 08/12/16 08:24 36.6 87 14 08/12/16 08:20 144/100 08/12/16 08:19 87 16 08/12/16 08:19 87 16 94 08/12/16 08:15 150/104 08/12/16 08:14 87 18 100 08/12/16 08:14 87 18 08/12/16 08:10 164/100 08/12/16 08:09 86 11 99 08/12/16 08:09 86 11 08/12/16 08:05 148/99 08/12/16 08:04 82 12 08/12/16 08:04 81 12 100 08/12/16 08:00 153/102 08/12/16 07:59 83 15 99 08/12/16 07:59 83 15 08/12/16 07:58 168/109 08/12/16 07:55 167/112 08/12/16 07:54 83 15 100 08/12/16 07:54 84 15 08/12/16 07:50 151/106 08/12/16 07:50 37 87 16 168/103 100 Mask 6 08/12/16 07:49 85 14 100 08/12/16 07:49 85 14 08/12/16 06:28 36.8 87 16 150/90 96 Room Air Notes Mental Status: alert / awake / arousable, participated in evaluation Pt Amnestic to Procedure: Yes Nausea / Vomiting: adequately controlled Pain: adequately controlled Airway Patency, RR, SpO2: stable & adequate BP & HR: stable & adequate Hydration State: stable & adequate Anesthetic Complications: no major complications apparent BP managed with labetalol on wakeup. 158/89 on discharge from pacu II
--- NOTE | 2016-08-12 11:40 | Medical Student: [facility] ---
Operative Report Operative Date Aug 12, 2016. Pre-Operative Diagnosis Stiffness and decreased ROM following left total knee arthroplasty Post-Operative Diagnosis Improved stiffness and ROM following left total knee arthroplasty Procedure(s) Performed Manipulation of knee Surgeon Dr. Hernández Computer Language Coder Surgeon(s) Dr. Erinn Olmedo Estimated Blood Loss N/A Findings Stiffness and decreased range of motion of left knee Specimens None Drains None Anesthesia General/LMA Complication(s) None Disposition Recovery Room / PACU
--- NOTE | 2016-08-13 07:00 | OPERATIVE REPORT ---
DATE OF OPERATION: 08/12/2016 PREOPERATIVE DIAGNOSIS: Stiffness, status post left total knee arthroplasty. POSTOPERATIVE DIAGNOSIS: Same. PROCEDURE: Manipulation under anesthesia. SURGEON: Dr. Yamil Hernández. ACADEMIC AFFAIRS MANAGER: Jack Plasencia, fellow. No PA available. SECOND ACADEMIC AFFAIRS MANAGER: Susan Barahona [facility] [employer] third year medical student. ANESTHESIA: Laryngeal mask. INDICATIONS OF PROCEDURE: The patient is a 61-year-old male status post left knee replacement 2 months ago. He has struggled with obtaining functional range of motion and after somewhat plateauing at about 90 degrees at 8 weeks, we talked about his options and he elected to proceed with a manipulation. Postoperative radiographs showed that the components are in good position. The patella does not appear to be overstuffed. The femur is not oversized. PROCEDURE IN DETAIL: Informed consent was obtained. The patient was identified as Coleman Christopher. He identified the operative site as the left knee. I marked it with my initials. A preop surgical timeout was performed. Preop antibiotics were not indicated. He was positioned supine on the hospital stretcher. General anesthetic was administered. DVT prophylaxis will be done postoperatively with NSAIDs and early mobility. The knee initially showed range of motion 0/20/90. The contralateral limb was 0/20/130. Gentle manipulation of the patella improved the mobility of the retinaculum. The knee was stable. There was 1+ edema about the knee, but no intraarticular effusion. The incision was completely healed. Gentle manipulation overtime in both flexion and extension with some occasional pops and cracks as is heard with breaking up of scar tissue adhesions was noted. Final range of motion with gravity was 0/12/110. With some gentle pressure, final motion was 0/10/120. The patient was then awakened from anesthesia without difficulty and taken to recovery in stable condition. There were no specimens, complications or blood loss. At the conclusion of the operation, I spoke to the patient's and informed her of my findings. Postoperative instructions were given. Emphasis on pain control, rehabilitation and physiotherapy. He will take Toradol for pain control along with the narcotic for the next several days. Once Toradol was done, he will resume aspirin 325 b.i.d. I attest to the content of the Intraoperative Record and any orders documented therein. Any exceptio ns are noted below.
== END | disposition home or self-care (01) ==
LOC: X.SURG 06:13
PROVIDERS: ATTEND Physical Medicine & Rehabilitation Sports Medicine
DX: M25.662 Stiffness of left knee, not elsewhere classified (principal); Z98.890 Other specified postprocedural states

== ENCOUNTER → 2017-07-04 | Outpatient (CLI) | payer BC, OTHER ==
[~2017-07-04] MED LIST changes: -ASPI325T4 PO; -ATROPINE SULFATE 0.1 MG/ML 5ML SYR IV PRN; -BUPIVACAINE 0.5 % 5 MG/1 ML PF 10ML VIAL ONE; -EpHEDrine SULFATE INJ 50 MG/ML AMP IV PRN; -FENTANYL CITRATE INJ 50 MCG/1 ML 2 ML VIAL IV PRN; -FENTANYL CITRATE INJ 50 MCG/1 ML 2 ML VIAL ONE; -HYDROCODONE/ACETAMOPHEN 5/325MG TAB ONE; -HYDROCODONE/ACETAMOPHEN 5/325MG TAB PO PRN; -KETO10TA PO; -KETOROLAC TROMETHAMINE 30 MG/ML VIAL ONE; -LABETALOL HCL IV 5 MG/ML 20ML ONE; -LIDOCAINE HCL 2% 2 ML VIAL (20MG/ML) ONE; -METHYLPREDNISOLONE ACETATE 80 MG/ML VIAL ONE; -MIDAZOLAM HCL 1 MG/ML 2ML VIAL ONE; -MoRPHine SULFATE 2 MG/ML CARP IV PRN; -ONDANSETRON INJ 2 MG/ML 2 ML VIAL IV PRN; -ONDANSETRON INJ 2 MG/ML 2 ML VIAL ONE; -PROPOFOL IV EMULSION 10 MG/ML 20 ML VIAL IV ONE; -SODIUM CHLORIDE 0.9% 1000ML 1,000 ML IV SCH; -SUCCINYLCHOLINE 100MG/5ML SYR IV ONE
== END | disposition home or self-care (01) ==
LOC: C.RDSM 20:49
PROVIDERS: ATTEND Physical Medicine & Rehabilitation Sports Medicine
DX: Z96.659 Presence of unspecified artificial knee joint (principal)

== ENCOUNTER → 2017-07-15 | Outpatient (CLI) | payer OTHER | END | disposition home or self-care (01) | LOC: C.RDSM 08:00 | PROVIDERS: ATTEND Physical Medicine & Rehabilitation Sports Medicine | DX: M65.4 Radial styloid tenosynovitis [de Quervain] (principal) ==